=== PATIENT | female | born 1960 | race Caucasian/White ===

== ENCOUNTER 2022-12-08 17:52 | Emergency (ER) | payer MEDICAID ==
[~2022-12-08] VITALS: Ht 160 cm; Wt 79.4 kg
--- NOTE | 2022-12-08 18:10 | NUR ---
Pt was triaged, only open bed in ER is 2A. Attempted to place pt in room 2A and do an EKG, there is dry blood on the floor, pt stated she can not be in the room until the floor has been cleaned. EVS called to clean the room/floor. Pt stated she will wait in the ER waiting room.
--- NOTE | 2022-12-08 18:30 | NUR ---
Pt ambulatory to room 2A, at bedside, EKG done.
[2022-12-08 18:53] LABS: HEMATOCRIT 37.3 % (31.2-41.9); MEAN CORPUSCULAR HEMOGLOBIN 30.4 uug (24.7-32.8); MEAN CORPUSCULAR VOLUME 89.6 fL (75.5-95.3); PLATELET COUNT (AUTO) 199 K/uL (179-408)
[2022-12-08 19:06] LABS: CARBON DIOXIDE 26 mmol/L (21-32); CHLORIDE 106 mmol/L (98-107); CREATININE 0.8 mg/dL (0.6-1.3); GLUCOSE 118 mg/dL (74-106); POTASSIUM 3.5 mmol/L (3.5-5.1); UREA NITROGEN, BLOOD 13 mg/dL (7-18)
--- NOTE | 2022-12-08 19:30 | NUR ---
Pt is noted in bed alert, responsive as report is received from the off going nurse, that Pt came in C/O Palpitations , Epigastric pain and Dizziness. Pt care continue as she is been monitor closely .
[2022-12-08 19:35] LABS: BILIRUBIN,DIRECT 0.1 mg/dL (0.0-0.2); BILIRUBIN,TOTAL 0.4 mg/dL (0.2-1.0)
[2022-12-08] MEDS ORDERED: MAG HYDROX/AL HYDROX/SIMETH 30 ML LIQUID UDC PO ONE (19:45)
[2022-12-08] MEDS ORDERED: MAG HYDROX/AL HYDROX/SIMETH 30 ML LIQUID UDC ONE (19:47)
--- NOTE | 2022-12-08 20:16 | NUR ---
ACI GIVEN, REMAINS STABLE FOR DISCHARGE HOME. AT [facility] GOING OVER RESULTS.
[2022-12-08 20:17] VITALS: BP 140/73
== END 2022-12-08 20:18 | disposition home or self-care (01) ==
LOC: ER 17:54
DX: R00.2 Palpitations (principal); R07.89 Other chest pain; Z88.1 Allergy status to other antibiotic agents
CPT/HCPCS: 36415; 71045; 83690; 84484; 85025; 93005; A4663

== ENCOUNTER 2025-02-17 14:21 | Emergency (ER) | payer BC, MEDICAID ==
[~2025-02-17] VITALS: Ht 160 cm; Wt 92.1 kg
[~2025-02-17 14:21] MED LIST: GUAI-671 PO
[2025-02-17] MEDS ORDERED: ROSU10TA2 PO (14:44)
[2025-02-17] MEDS ORDERED: OMEP20CA15 PO (14:44)
[2025-02-17] MEDS ORDERED: KETOROLAC TROMETHAMINE 30 MG INJ ONE (15:55)
[2025-02-17 15:59] LABS: PLATELET COUNT (AUTO) 224 K/uL (179-408); RED BLOOD CELL COUNT(AUTO) 4.35 MIL/uL (3.63-4.92); RED CELL DISTRIBUTION WIDTH 15.0 % (12.3-17.7); WHITE BLOOD COUNT (AUTO) 8.7 K/uL (3.8-11.8)
[2025-02-17] MEDS: KETOROLAC TROMETHAMINE 30 MG INJ IM ONE (16:00)
[2025-02-17 16:07] LABS: CREATININE 0.7 mg/dL (0.6-1.3); SODIUM SERUM 141.0 mmol/L (136-145); UREA NITROGEN, BLOOD 12.0 mg/dL (7-18)
[2025-02-17 17:56] VITALS: BP 142/78; TEMP 98.5; O2SAT 99
== END 2025-02-17 17:58 | disposition home or self-care (01) ==
LOC: ER 14:21
DX: M25.551 Pain in right hip (principal); M25.561 Pain in right knee; R00.2 Palpitations; E78.5 Hyperlipidemia, unspecified; K21.9 Gastro-esophageal reflux disease without esophagitis; Z79.899 Other long term (current) drug therapy; Z88.1 Allergy status to other antibiotic agents
CPT/HCPCS: 99285; 93971; 80048; 85025; 85379; 36415; 73502; 73564; 93005; 96372; J1885; A4606; A4663